=== PATIENT | female | born 1975 | race American Indian/Alaskan Native ===

== ENCOUNTER 2017-04-21 10:00 | Outpatient (CLI) | payer OTHER ==
--- NOTE | 2017-04-21 12:11 | Mammography Report ---
Bilateral mammogram and sonogram: No previous studies are available for comparison. CAD study utilized. History: Right breast mass. Findings: Bilateral dense breast parenchyma. Benign scattered calcifications bilaterally. No microcalcification. Suspicious density approximately 3:00 position left breast. Suspicious density upper and lower right breast. Sonographic examination reveals cyst at 12:00 position retroareolar measuring 0.9 x 0.9 x 0. 93 cm. 2 complex cysts are identified at approximately 7:00 position 2 cm from nipple measuring 1.1 x 0.6 x 1.1 cm and 0.8 x 0.7 x 0.7 cm. Benign Cyst measuring 0.6 x 0.3 x 0.5 cm is identified at 9:00 position left breast and a benign cyst measuring 1.1 x 0.3 x 0.7 cm is identified at approximately 4:00 position left breast. Impression: Bilateral probably benign cysts. No solid mass identified. 6 month followup with mammogram and sonogram recommended. BI-RADS CATEGORY: 3 = Probably benign ACR BI-RADS MAMMOGRAPHIC CODES: 0 = Needs additional imaging evaluation; 1 = Negative; 2 = Benign; 3 = Probably benign; 4 = Suspicious; 5 = Malignant; 6 = Known biopsy-proven malignancy COMMENT: 1. Dense breast tissue, i.e., adenosis, fibrocystic changes, etc., may obscure an underlying neoplasm. 2. Approximately 10% of cancers are not detected with mammography. 3. A negative mammography report should not delay biopsy if a clinically suspicious mass is present. COMMENT: Patient follow-up letters are generated in [employer].
== END 2017-04-21 10:01 | disposition home or self-care (01) ==
LOC: US 10:00
PROVIDERS: ATTEND Family Medicine
DX: N60.01 Solitary cyst of right breast (principal); N60.02 Solitary cyst of left breast; N63 Unspecified lump in breast; R92.1 Mammographic calcification found on diagnostic imaging of breast
CPT/HCPCS: 76641; G0206

== ENCOUNTER 2020-07-25 06:53 | Observation (INO) | payer OTHER ==
--- NOTE | 2020-07-23 10:44 | Anesthesia Consultation ---
Anesthesia Consult and Med Hx Date of service: 07/25/20 - Airway Anesthetic Teeth Evaluation: Bridges ROM Head & Neck: Adequate Mental/Hyoid Distance: Adequate Mallampati Class: Class II Intubation Access Assessment: Good - Pre-Operative Health Status ASA Pre-Surgery Classification: ASA2 Proposed Anesthetic Plan: General Nerve Block: TAP - Pulmonary Hx Respiratory Symptoms: No (+2FS) - Cardiovascular System Hx Hypertension: Yes Hx Heart Murmur: Yes - Central Nervous System Hx Psychiatric Problems: No - Hematic Hx Sickle Cell Disease: No - Other Systems Hx Alcohol Use: Yes (Occas) Hx Cancer: No Hx Obesity: No
[2020-07-23 11:13] LABS: Basophils % (Auto) 0.4 % (0.0-1.8); Eosinophils # (Auto) 0.1 K/mm3 (0.0-0.4); Eosinophils % (Auto) 1.9 % (0.0-4.3); Hematocrit 25.1 % (30.3-42.9); Hemoglobin 7.2 gm/dl (10.1-14.3); Lymphocytes # (Auto) 1.8 K/mm3 (1.2-5.4); Lymphocytes % (Auto) 35.8 % (13.4-35.0); Mean Corpuscular HGB Conc 29 % (30-34); Mean Corpuscular Volume 60 fl (79-97); Monocytes # (Auto) 0.8 K/mm3 (0.0-0.8); Monocytes % (Auto) 15.9 % (0.0-7.3); Platelet Count 570 K/mm3 (140-440); Red Blood Count 4.21 M/mm3 (3.65-5.03); Red Cell Distribution Width 19.3 % (13.2-15.2)
[2020-07-23 11:15] LABS: Blood Urea Nitrogen 11 mg/dL (7-17); Calcium 9.7 mg/dL (8.4-10.2); Hemolysis Index 0
[2020-07-23 11:27] LABS: BUN/Creatinine Ratio 16
--- NOTE | 2020-07-25 06:44 | History and Physical Report ---
History of Present Illness Date of examination: 07/25/20 Date of admission: 07/25/2020 Chief complaint: symptomatic fibroids History of present illness: 44y/o with symptomatic fibroids. The patient reports heavy bleeding and pain with her menses. Ultrasound demonstrates an enlarged fibroid uterus measuring 12cm with 3-4 leiomyomas. The largest being 4.3cm. The patient elects for definitive surgical management. The patient has developed a significant iron deficiency anemia secondary to her dysfunctional uterine bleeding. She will require transfusion of blood products prior to surgery. Past History Past Medical History: hypertension, other (Anemia) Past Surgical History: other (tubal ligation) Social history: single - Obstetrical History : 6 Para: 3 Hx # Term Pregnancies: 3 Number of Pregnancies: 0 Spontaneous Abortions: 1 Induced : 2 Number of Living Children: 3 Medications and Allergies Allergies Allergy/AdvReac Type Severity Reaction Status Date / Time No Known Allergies Allergy Unverified 07/18/20 18:05 Home Medications Medication Instructions Recorded Confirmed Last Taken Type hydroCHLOROthiazide 12.5 mg PO DAILY 07/18/20 07/25/20 07/24/20 History [Hydrochlorothiazide] Active Meds: Active Medications Acetaminophen (Acetaminophen 500 Mg Tab) 1,000 mg PO ONCE NR Stop: 07/25/20 20:00 Celecoxib (Celecoxib 200 Mg Cap) 400 mg PO PREOP NR Stop: 07/25/20 20:00 Fentanyl (Fentanyl 100 Mcg/2 Ml Inj) 100 mcg IV ONCE NR Stop: 07/25/20 20:00 Gabapentin (Gabapentin 300 Mg Cap) 300 mg PO PREOP NR Stop: 07/25/20 20:00 Lactated Ringer's (Lactated Ringers) 1,000 mls @ 100 mls/hr IV DIRECT DWAYNE Sodium Chloride (Nacl 0.9% 500 Ml) 500 mls @ 0 mls/hr IV ONCE DWAYNE Stop: 07/25/20 23:00 Magnesium Oxide (Magnesium Oxide 400 Mg Tab) 400 mg PO ONCE NR Stop: 07/25/20 20:00 Midazolam HCl (Midazolam 2 Mg/2 Ml Inj) 2 mg IV PREOP NR Stop: 07/25/20 23:59 Review of Systems All systems: negative Constitutional: fatigue Genitourinary: vaginal bleeding, pelvic pain - Vital Signs Vital signs: Vital Signs Temp Pulse Resp BP Pulse Ox 98.2 F 60 16 104/74 100 12/14/20 10:40 07/23/20 10:40 07/23/20 10:40 07/23/20 10:40 07/23/20 10:40 Temp Pulse Resp BP Pulse Ox 98.2 F 60 16 104/74 100 07/23/20 10:40 07/23/20 10:40 07/23/20 10:40 07/23/20 10:40 07/23/20 10:40 - Physical Exam Breasts: Positive: deferred Cardiovascular: Regular rate Lungs: Positive: Clear to auscultation Abdomen: Positive: normal appearance Results Result Diagrams: 07/23/20 10:45 07/23/20 06:00 All other labs normal. Assessment and Plan - Patient Problems (1) Iron deficiency anemia due to chronic blood loss Current Visit: No Status: Acute Plan to address problem: will proceed with a robotic hysterectomy and bilateral salpingectomy Patient will be transfused 2 units packed red blood cells prior to surgery (2) Menorrhagia Current Visit: No Status: Acute (3) Uterine fibroid Current Visit: No Status: Acute
[~2020-07-25 06:53] MED LIST: ACETAMINOPHEN 500 MG TAB PO NR; CELECOXIB 200 MG CAP PO NR; GABAPENTIN 300 MG CAP PO NR; MAGNESIUM OXIDE 400 MG TAB PO NR; MIDAZOLAM 2 MG/2 ML INJ IV NR; SODIUM CHLORIDE 0.9% 500 ML 500 ML IV SCH; fentaNYL 100 MCG/2 ML INJ IV NR
[2020-07-25] MEDS ORDERED: ONDANSETRON 4 MG/2 ML INJ IV PRN ×2 (07:24→11:47)
[2020-07-25] MEDS ORDERED: HYDROmorphone 1 MG/1 ML INJ IV PRN ×2 (07:24)
--- NOTE | 2020-07-25 07:24 | Anesthesia Day of Surgery ---
Anesthesia Day of Surgery - Day of Surgery Patient Examined: Yes Patient H&P Reviewed: Yes Patient is NPO: Yes
[2020-07-25] MEDS: LACTATED RINGERS 1,000 ML IV SCH ×2 (07:30→08:45)
[2020-07-25] MEDS ORDERED: ceFAZolin/STERILE WATER 2 GM/20 ML SYRINGE IV NR (08:00)
[2020-07-25] MEDS ORDERED: ePHEDrine SULFATE 50 MG/1 ML INJ ONE (08:21)
[2020-07-25] MEDS ORDERED: BUPIVACAINE-EPINEPHRINE/PF 0.5%-1:200,000 (30 ML) VIAL INFILTRATI ONE (09:01)
[2020-07-25] MEDS ORDERED: BUPIVACAINE/PF (0.25%) 2.5 MG/ML 30 ML VIAL INFILTRATI ONE (09:01)
[2020-07-25] MEDS ORDERED: propofoL 200 MG/20 ML VIAL IV ONE (09:28)
[2020-07-25] MEDS ORDERED: HYDROmorphone 1 MG/1 ML INJ ONE (09:28)
[2020-07-25] MEDS ORDERED: ROCURONIUM 50 MG/5 ML INJ IV ONE (09:29)
[2020-07-25] MEDS ORDERED: LIDOCAINE MPF (2%) 20 MG/1 ML VIAL 5 ML ONE (09:29)
[2020-07-25] MEDS ORDERED: NEOMY 40 MG/POLYMYXIN B 200,000 UNITS/ML (GU) AMPULE IR ONE ×2 (09:29→10:46)
[2020-07-25] MEDS ORDERED: SODIUM CHLORIDE 0.9% IRR 1,500 ML BOTTLE IR ONE (10:47)
[2020-07-25] MEDS ORDERED: SODIUM CHLORIDE 0.9% IRRIG SOLN 2000 ML IR ONE (10:47)
[2020-07-25] MEDS ORDERED: NEOSTIGMINE 10MG/10 ML INJ MDV ONE ×2 (11:41)
[2020-07-25] MEDS ORDERED: KETOROLAC 30 MG/1 ML INJ ONE (11:41)
[2020-07-25] MEDS ORDERED: ONDANSETRON 4 MG/2 ML INJ ONE (11:41)
[2020-07-25] MEDS ORDERED: GLYCOPYRROLATE 0.4 MG/2 ML INJ ONE (11:41)
[2020-07-25] MEDS ORDERED: dexAMETHasone 20 MG/5 ML VIAL ONE (11:42)
--- NOTE | 2020-07-25 11:46 | Operative Report ---
Operative Report Operative Report: Date of surgery: July 25, 2020 Preoperative diagnoses: Symptomatic uterine fibroids; menorrhagia; iron d eficiency anemia secondary to chronic blood loss Postoperative diagnoses: Same as above Procedure: Robotic hysterectomy; bilateral salpingectomy Surgeon: Sweetie Jacobo M.D. Sales Assistant: Jovana Odom Anesthesia: Gen. endotracheal anesthesia Estimated blood loss: 300 mL Pathology: Uterus, cervix, leiomyomas, bilateral tubes Indication: 44-year-old -0-3-3 with a history of symptomatic uterine fibroids. The patient had significant menorrhagia that contributed to her iron deficiency anemia. The patient was transfused 2 units packed red blood cells prior to surgery. Procedure: The patient was taken to the operating room and given general endotracheal anesthesia without complication. She is prepped and draped in a normal sterile fashion. A bivalve speculum was placed in the patient's vagina and a single- tooth tenaculum placed on the anterior lip of the cervix. The uterus was sounded with the uterine sound. A Sensing Electromagnetic Plus uterine manipulator was placed in the bivalve speculum was then removed. Attention was then turned to the patient's abdomen where a millimeter supra umbilical skin incision was then made. A Veress needle was placed and peritoneal entry was verified water-filled syringe. Insufflation of the peritoneal cavity was performed with CO2 gas. The 12 mm trocar was then placed under direct visualization. An additional 8 mm trocar was placed on the patient's left and right lateral side just opposite of the supraumbilical trocar. An additional 5 mm right lateral trocar was then placed as the accessory port. The supraumbilical 12 mm trocar site was closed with the Nas Felicinao device and 0-vicryl suture. The patient was then placed in steep Trendelenburg. The da Bg robot was then engaged. A fenestrated forcep was placed in arm 2 and a vessel sealer was placed in arm 1. General survey of the abdomen and pelvis revealed a markedly enlarged fibroid uterus with multiple leiomyomas. The tubes and ovaries were normal in appearance. The tubes demonstrated evidence of prior tubal ligation with Filshie clips. The surgeon then transferred to the surgical console. The mesosalpinx was then isolated on the right. The vessel sealer was used to coagulate the mesosalpinx which was then transected. The tube was transected from the ovary. The tubo-ovarian ligament was then coagulated and transected. The round ligament was then coagulated and transected also. The vesicouterine peritoneum was then entered from the patient's right side. The uterine vessels were then coagulated with the vessel sealer. The vessels were then transected . Attention was then turned to the patient's left side where the tubo-ovarian ligament and mesosalpinx were again isolated coagulated and transected. The vesical peritoneum was then entered from the left and joined in the midline. Peritoneum was reflected off of the lower uterine segment. Uterine vessels were then coagulated and then transected. The blood supply to the uterus was adequately contained, a posterior colpotomy was made. The V care ring was visualized. Posterior colpotomy was created with the monopolar scissors. The incision was continued circumferentially until anterior colpotomy was made. Secondary to the enlarged size of the uterus the uterus had to be bivalved and 3 leiomyomas were removed in order to decompress the uterus. The cervix and uterus were amputated from the vaginal cuff. The uterus was then removed along with the leiomyomas and tubes bilaterally through the vagina and a warm laparotomy sponge was placed and maintain the pneumoperitoneum. The vaginal cuff was then closed in a running fashion with V lock suture. Irrigation of the pelvis was performed. Hemoblast was applied to the incision. The skin was then reapproximated with 4-0 Monocryl. The tissue was sent to pathology which included the cervix, leiomyomas, bilateral tubes and uterus. The patient was then successfully extubated. She was then taken to the recovery room in stable condition. All sponge laps and needle counts were correct x2.
[2020-07-25] MEDS ORDERED: IBUPROFEN 800 MG TAB PO PRN (11:47)
[2020-07-25] MEDS ORDERED: oxyCODONE /ACETAMINOPHEN 5-325MG TAB PO PRN (11:47)
[2020-07-25] MEDS ORDERED: KETOROLAC 30 MG/1 ML INJ IV PRN (11:47)
[2020-07-25] MEDS ORDERED: MORPHINE 4 MG/1 ML INJ IV PRN (11:47)
[2020-07-25] MEDS ORDERED: ACETAMINOPHEN 325 MG TAB PO PRN (11:47)
[2020-07-25] MEDS ORDERED: D5W/LACTATED RINGERS 1,000 ML IV SCH (12:00)
[2020-07-25 14:07] VITALS: BP 141/88
--- NOTE | 2020-07-25 17:42 | Post Anesthesia Evaluation ---
- Post Anesthesia Evaluation Patient Participated: Yes Airway Patent: Yes Stable Respiratory Function: Yes Nausea/Vomiting: No Temp > 96.8F: Yes Pain Manageable: Yes Adequeate Hydration: Yes Anesthesia Complications: Yes Block Receding Appropriately: Yes Patient on Ventilator: No
== END 2020-07-25 19:22 | disposition home or self-care (01) ==
LOC: OR 06:53 → OB 11:47
PROVIDERS: ADMIT Obstetrics & Gynecology; ATTEND Obstetrics & Gynecology
DX: D25.9 Leiomyoma of uterus, unspecified (principal); D50.0 Iron deficiency anemia secondary to blood loss (chronic); N92.0 Excessive and frequent menstruation with regular cycle; I10 Essential (primary) hypertension; Z98.51 Tubal ligation status
CPT/HCPCS: 36415; 36430; 58573; 64450; 80048; 84703; 85025; 86850; 86900; 86901; 86920; 88307; 96360; 96361; A4217; G0378; J0690; J1100; J1170; J1885; J2250; J2405; J2704; J2710; J3010; J7120; P9016; S2900; J7040